=== PATIENT | female | born 1945 | race Two or more races ===

== ENCOUNTER 2023-04-06 10:07 | Emergency (ER) | payer OTHER ==
[~2023-04-06] VITALS: Ht 154.9 cm; Wt 56.7 kg
[~2023-04-06 10:07] MED LIST: ALLEGRA30 MG PO; BENTYL10 MG/ML IM; CATAPRES0.2 MG PO; EVISTA60 MG PO; GLUCOTROL5 MG/BOTTL PO; LIPITOR20 MG PO; PROVENTIL S1 ML/5 MG IH; RESTORIL30 MG PO; TAGAMET300 MG PO; ULTRACET PO; VENTOLIN; VYTORIN 10-20 M1 TAB PO; XANAX XR0.5 MG PO; XANAX1 MG PO; ZANTAC150 M1 PO
[2023-04-06] MEDS ORDERED: CIPRO500 MG (11:34)
[2023-04-06] MEDS ORDERED: CATAPRES0.3 MG (11:34)
[2023-04-06] MEDS ORDERED: FLAGYL375 MG (11:34)
[2023-04-06 14:53] LABS: HEMATOCRIT 41.1 % (36.0-45.00); HEMOGLOBIN 14.3 g/dL (12.0-15.00); MEAN CORPUSCULAR HEMOGLOBIN 29.6 pg (27.00-32.0); MEAN CORPUSCULAR HGB CONC 34.8 g/dl (32.0-36.0); PLATELET COUNT 256 K/uL (150-450); RED BLOOD COUNT 4.84 M/uL (4.00-6.00); RED CELL DISTRIBUTION WIDTH 13.3 % (11.5-14.5)
[2023-04-06 15:21] LABS: ALBUMIN 4.3 gm/dL (3.4-5.0); BILIRUBIN TOTAL 0.68 mg/dL (0.3-1.2); BILIRUBIN,CONJUGATED 0.17 mg/dL (0.0-0.2); BILIRUBIN,UNCONJUGATED 0.51 mg/dL (0.0-0.6); CALCIUM 9.7 mg/dL (8.5-10.1); CREATININE SERUM 0.77 mg/dL (0.55-1.02); GFR 72.88; POTASSIUM 3.83 mEq/L (3.5-5.1); TOTAL PROTEIN 8.6 gm/dL (6.4-8.2)
[2023-04-06 15:37] LABS: PH,URINE 5.5 (5.0-8.0); URINE APPEARANCE Clear; URINE BILIRRUBIN Negative (NEGATIVE); URINE BLOOD Negative; URINE COLOR Yellow; URINE GLUCOSE Negative (NEGATIVE); URINE LEUKOCYTE Trace; URINE NITRATE Negative; URINE PROTEIN 30 (NEGATIVE)
[2023-04-06 15:38] LABS: URINE EPITHELIAL CELLS 3.7 uL (0.0-38.8); URINE RBC 6.4 uL (0.0-20.8); URINE WBC 4.9 uL (0.0-23.2)
[2023-04-06 15:57] LABS: INR 1.05; PARTIAL THROMBOPLASTIN TIME 22.3 SECONDS (22.0-34.0)
[2023-04-06] MEDS ORDERED: PEPCID AC20 MG PO (17:22)
== END 2023-04-06 18:43 | disposition home or self-care (01) ==
LOC: ER 10:07
PROVIDERS: General Practice
DX: K57.32 Diverticulitis of large intestine without perforation or abscess without bleeding (principal); Z88.6 Allergy status to analgesic agent; J45.909 Unspecified asthma, uncomplicated; E11.9 Type 2 diabetes mellitus without complications; E78.00 Pure hypercholesterolemia, unspecified; I10 Essential (primary) hypertension
CPT/HCPCS: 36415; 74176; 96365; 96366; 99284; J0744; J3490; J7030